=== PATIENT | male | born 1950 | race American Indian/Alaskan Native ===

== ENCOUNTER 2017-06-04 09:03 | Day surgery (SDC) | payer MEDICARE ==
[~2017-06-04 09:03] MED LIST: ANCEF/STERILE WATER 2 GM/20 ML 2 GM/20 ML SYRINGE IV NR; NACL 0.9% 1000 ML 1,000 ML IV SCH; PEPCID PO NR
[2017-06-04] MEDS ORDERED: VERSED IV NR (10:34)
--- NOTE | 2017-06-04 10:34 | Anesthesia Day of Surgery ---
Anesthesia Day of Surgery - Day of Surgery Patient Examined: Yes Patient H&P Reviewed: Yes Patient is NPO: Yes
--- NOTE | 2017-06-04 10:36 | Anesthesia Consultation ---
Anesthesia Consult and Med Hx Date of service: 06/04/17 - Airway Anesthetic Teeth Evaluation: Poor (loose bottom right molar), Partials (upper) ROM Head & Neck: Adequate Mental/Hyoid Distance: Adequate Mallampati Class: Class II Intubation Access Assessment: Probably Good - Pulmonary Exam CTA: Yes - Cardiac Exam Cardiac Exam: RRR - Pre-Operative Health Status ASA Pre-Surgery Classification: ASA2 Proposed Anesthetic Plan: General - Pulmonary Hx Smoking: Yes (STOPPED 1973,1 PPD X 8 YRS) Hx Sleep Apnea: No (ALTHEA PRE SCREEN LOW RISK) - Cardiovascular System Hx Hypertension: Yes (not on meds) - Central Nervous System Hx Seizures: No CVA: No - Endocrine Hx Renal Disease: No Hx Thyroid Disease: No - Other Systems Hx Cancer: No
[2017-06-04] MEDS ORDERED: ZOFRAN IV PRN (11:00)
[2017-06-04] MEDS ORDERED: MARCAINE 0.25% INFILTRATI ONE (11:27)
[2017-06-04] MEDS ORDERED: TRIPLE ANTIBIOTIC TP ONE ×2 (11:27→12:15)
[2017-06-04] MEDS ORDERED: DIPRIVAN 10 MG/ML IV ONE (11:31)
[2017-06-04] MEDS ORDERED: SUBLIMAZE ONE (11:32)
--- NOTE | 2017-06-04 11:34 | Discharge Summary ---
Short Stay Discharge Plan Activity: other (no lifting or straining) Weight Bearing Status: Full Weight Bearing Diet: regular Wound: open to air (remove dressing at 7 PM tonight) Durable Medical Equipment Needed Upon Discharge: other (Neosporin ointment to incision twice a day for 1 week) Follow up with: RADHA GARCIA MD [Primary Care Provider] - 7 Days WALTER MARRERO MD [Staff Physician] - 10 Days
[2017-06-04] MEDS ORDERED: XYLOCAINE MPF 2% ONE (11:35)
--- NOTE | 2017-06-04 11:36 | Post Operative Note ---
Pre-op diagnosis: chronic inflammatory changes Post-op diagnosis: same (balanitis) Findings: He and has recurrent irritation of the foreskin cracking and irritation of the glans of the penis. He desires circumcision also for conversion purposes Procedure: Circumcision Preoperative diagnosis balanitis Postoperative diagnosis the same Procedure circumcision Surgeon Dr. Ronny mata Gen. Findings as above Procedure Patient was brought to the operating room placed on the operating table. Following the induction of anesthesia placed in the supine position prepped and draped in a sterile fashion. The skin was so tight and cracked that a dorsal slit was required We did a small ventral slit as well. The incisions were connected and a large amount of foreskin was excised. Hemostasis was obtained with 30 ties as well as the cautery. There was quite a bit of inflammation especially her circumferentially around the foreskin. At this point the after hemostasis was obtained sutures were placed at 12 36 and 9 o'clock position Patient tolerated procedure well the quadrants were sutured with 30 and 4-0 chromic. Sterile dressing was applied. Minimal blood loss probably 5 mL brought to recovery room in stable condition Anesthesia: ZOHAIB Surgeon: WALTER MARRERO Estimated blood loss: minimal Pathology: list (foreskin) Specimen disposition: to lab Condition: stable Disposition: PACU
[2017-06-04] MEDS ORDERED: DECADRON ONE (11:58)
[2017-06-04] MEDS ORDERED: ZOFRAN ONE (11:59)
[2017-06-04] MEDS ORDERED: ANCEF/STERILE WATER 2 GM/20 ML 2 GM/20 ML SYRINGE IV NR (12:00)
[2017-06-04] MEDS ORDERED: NACL 0.9% IR ONE (12:15)
[2017-06-04] MEDS: DILAUDID IV PRN ×2 (13:00→13:10)
--- NOTE | 2017-06-04 13:02 | Post Anesthesia Evaluation ---
- Post Anesthesia Evaluation Patient Participated: Yes Airway Patent: Yes Stable Respiratory Function: Yes Nausea/Vomiting: No Temp > 96.8F: Yes Pain Manageable: Yes Adequeate Hydration: Yes Anesthesia Complications: No Block Receding Appropriately: Not Applicable Patient on Ventilator: No
[2017-06-04] MEDS ORDERED: NORMODYNE IV ONE (13:27)
[2017-06-04 19:00] VITALS: BP 152/78
== END 2017-06-04 15:45 | disposition home or self-care (01) ==
LOC: OR 09:03
PROVIDERS: ATTEND Urology
DX: N48.1 Balanitis (principal); I10 Essential (primary) hypertension; Z87.891 Personal history of nicotine dependence; Z98.890 Other specified postprocedural states; Z91.013 Allergy to seafood; Z88.5 Allergy status to narcotic agent; Z88.6 Allergy status to analgesic agent; Z91.09 Other allergy status, other than to drugs and biological substances; Z80.9 Family history of malignant neoplasm, unspecified
CPT/HCPCS: 54161; 88304; J0690; J1100; J1170; J2250; J2405; J2704; J3010; J7030; A6250